=== PATIENT | male | born 1990 ===

== ENCOUNTER 2018-07-26 17:30 | Emergency (ER) | payer SELFPAY ==
[2018-07-26 18:29] LABS: BASO % 0.3 % (0.0-2.0); EOS % 0.1 % (0.0-4.0); HEMOGLOBIN 16.1 g/dL (12.0-18.0); LYMPH # 2.5 K/uL (1.0-4.3); LYMPH % 19.6 % (20.0-40.0); MEAN CELL VOLUME 90.9 fL (80.0-94.0); MEAN CORPUSCULAR HEMOGLOBIN 31.6 pg (27.0-31.0); MEAN CORPUSCULAR HGB CONC 34.8 g/dL (33.0-37.0); MEAN PLATELET VOLUME 9.9 fL (7.2-11.7); MONO # 1.8 K/uL (0.0-0.8); MONO % 13.9 % (0.0-10.0); NEUT # 8.6 K/uL (1.8-7.0); NEUT % 66.1 % (50.0-75.0); RBC 5.09 Mil/uL (4.40-5.90); RED CELL DISTRIBUTION WIDTH 13.1 % (11.5-14.5); WHITE BLOOD COUNT 12.9 K/uL (4.8-10.8)
[2018-07-26] MEDS ORDERED: Sodium Chloride 0.9% 1,000 ML IV ONE ×2 (18:30→20:15)
[2018-07-26 18:33] LABS: SQUAMOUS EPITHIAL 12 /hpf (0-5); URINE BILIRUBIN NEGATIVE (NEGATIVE); URINE BLOOD NEGATIVE (NEGATIVE); URINE CLARITY Hazy (Clear); URINE COLOR Amber (YELLOW); URINE GLUCOSE (UA) NORMAL (Normal); URINE HYALINE CAST >20 /lpf (0-2); URINE LEUKOCYTE ESTERASE NEG Leu/uL (Negative); URINE PROTEIN 1+ mg/dL (NEGATIVE); URINE UROBILINOGEN NORMAL mg/dL (0.2-1.0)
[2018-07-26 18:44] LABS: ALB/GLOB RATIO 1.4 (1.0-2.1); ALBUMIN 4.8 g/dL (3.5-5.0); CALCIUM 8.4 mg/dl (8.6-10.4)
[2018-07-26] MEDS ORDERED: Sodium Chloride 0.9% 1,000 ML ONE (18:58)
--- NOTE | 2018-07-26 20:04 | C.PDOC ---
History Of Present Illness 28 year old male presents to the ED for evaluation of abdominal cramps, nausea and vomiting which began two days ago. Patient states his pain is mostly in his epigastric region. Patient states he has been drinking Gatorade and having some difficulty tolerating PO intake. Patient reports having previous symptoms in the past. He was seen here and given nausea medication which helped. Patient has been told to see GI in the past, but has not done it yet. Patient denies fever, chills. Time Seen by Provider: 07/26/18 17:46 Chief Complaint (Nursing): Abdominal Pain History Per: Patient History/Exam Limitations: no limitations Onset/Duration Of Symptoms: Days Current Symptoms Are (Timing): Still Present Location Of Pain/Discomfort: Epigastric Associated Symptoms: Nausea, Vomiting. denies: Fever, Chills, Diarrhea, Urinary Symptoms Additional History Per: Patient Past Medical History Reviewed: Historical Data, Nursing Documentation, Vital Signs Vital Signs: Last Vital Signs Temp 98.8 F 07/26/18 17:37 Pulse 99 H 07/26/18 17:37 Resp 19 07/26/18 17:37 BP 106/75 07/26/18 17:37 Pulse Ox 95 07/26/18 17:37 Primary Care Provider: FAMILY PROVIDER,NO - Medical History PMH: No Chronic Diseases Surgical History: No Surg Hx Family History: States: Unknown Family Hx - Social History Hx Alcohol Use: Yes Hx Substance Use: No - Immunization History Hx Tetanus Toxoid Vaccination: No Hx Influenza Vaccination: No Hx Pneumococcal Vaccination: No Review Of Systems Constitutional: Negative for: Fever, Chills Gastrointestinal: Positive for: Nausea, Vomiting, Abdominal Pain (epigastric ) Genitourinary: Negative for: Dysuria, Hematuria Physical Exam - Physical Exam Appears: Non-toxic, Other (slightly uncomfortable ) Skin: Normal Color, Warm, Dry Head: Atraumatic, Normacephalic Eye(s): bilateral: Normal Inspection Oral Mucosa: Moist Neck: Supple Chest: Symmetrical, No Deformity, No Tenderness Cardiovascular: Rhythm Regular, No Murmur Respiratory: Normal Breath Sounds, No Rales, No Rhonchi, No Wheezing Gastrointestinal/Abdominal: Soft, Tenderness (epigastric ), No Guarding, No Rebound Back: No CVA Tenderness Extremity: Normal ROM, Capillary Refill (less than 2 seconds ) Neurological/Psych: Oriented x3, Normal Speech, Normal Cognition ED Course And Treatment - Laboratory Results Result Diagrams: 07/26/18 18:27 07/26/18 20:48 Lab Results: Total Bilirubin 1.0 mg/dL (0.2-1.3) 07/26/18 18: AST 29 U/L (17-59) 07/26/18 18: ALT 27 U/L (21-72) 07/26/18 18: Alkaline Phosphatase 72 U/L (38-126) 07/26/18 18: Total Protein 8.2 g/dL (6.3-8.3) 07/26/18 18: Albumin 4.8 g/dL (3.5-5.0) 07/26/18 18: Globulin 3.4 gm/dL (2.2-3.9) 07/26/18 18: Albumin/Globulin Ratio 1.4 (1.0-2.1) 07/26/18 18: Lipase 102 U/L (23-300) 07/26/18 18: Urine Color Ninfa (YELLOW) 07/26/18 18:27 Urine Clarity Hazy (Clear) 07/26/18 18: Urine pH 5.0 (5.0-8.0) 07/26/18 18: Ur Specific Merritt 1.023 (1.003-1.030) 07/26/18 18: Urine Protein 1+ mg/dL (NEGATIVE) H 07/26/18 18:27 Urine Glucose (UA) Normal mg/dL (Normal) 07/26/18 18: Urine Ketones Negative mg/dL (NEGATIVE) 07/26/18 18: Urine Blood Negative (NEGATIVE) 07/26/18 18: Urine Nitrate Negative (NEGATIVE) 07/26/18 18: Urine Bilirubin Negative (NEGATIVE) 07/26/18 18: Urine Urobilinogen Normal mg/dL (0.2-1.0) 07/26/18 18: Ur Leukocyte Esterase Neg Cipriano/uL (Negative) 07/26/18 18:27 Urine WBC (Auto) 5 /hpf (0-5) 07/26/18 18:27 Urine RBC (Auto) 1 /hpf (0-3) 07/26/18 18:27 Ur Squamous Epith Cells 12 /hpf (0-5) H 07/26/18 18:27 Hyaline Casts >20 /lpf (0-2) H 07/26/18 18:27 O2 Sat by Pulse Oximetry: 95 (on RA ) Pulse Ox Interpretation: Normal Progress Note: Bloodwork and urinalysis ordered and reviewed. Pepcid IVP, Zofran IVP and IV Fluids given. Disposition Counseled Patient/Family Regarding: Studies Performed, Diagnosis, Need For Followup - Disposition Referrals: [facility] [Outside] Disposition: HOME/ ROUTINE Disposition Time: 21:15 Condition: STABLE Additional Instructions: FOLLOW UP WITH YOUR DOCTOR/CLINIC IN 1-2 DAYS DRINK PLENTY OF FLUIDS/GATORADE RETURN TO ER IF YOUR SYMPTOMS WORSEN Prescriptions: Ondansetron ODT [Zofran ODT] 1 odt PO BID PRN #15 odt PRN Reason: Nausea/Vomiting Instructions: Nausea and Vomiting, Adult (DC) Forms: [employer] (Honduran) Print Language: EMIRATI - Clinical Impression Clinical Impression: Nausea, Vomiting, Dehydration - Scribe Statement The provider has reviewed the documentation as recorded by the Scribe (Noy Brooks) Provider Attestation: All medical record entries made by the Scribe were at my direction and personally dictated by me. I have reviewed the chart and agree that the record accurately reflects my personal performance of the history, physical exam, medical decision making, and the department course for this patient. I have also personally directed, reviewed, and agree with the discharge instructions and disposition.
[2018-07-26] MEDS ORDERED: Potassium Chloride 20 mEq ER Tab PO STA (20:15)
[2018-07-26 20:22] VITALS: TEMP 98.4
[2018-07-26] MEDS ORDERED: Potassium Chloride 20 mEq ER Tab PO ONE (20:29)
[2018-07-26 21:03] LABS: ALB/GLOB RATIO 1.4 (1.0-2.1); ALBUMIN 3.5 g/dL (3.5-5.0); CALCIUM 7.3 mg/dl (8.6-10.4)
[2018-07-26 21:39] VITALS: BP 125/82; PULSE 88; RESP 18; O2SAT 98
== END 2018-07-26 21:39 | disposition home or self-care (01) ==
LOC: C.ER 17:30
DX: E86.0 Dehydration (principal); R11.2 Nausea with vomiting, unspecified
CPT/HCPCS: 80053; 81001; 83690; 85025; 96361; 96374; 96375; 99285; J2405; J2765; J7030

== ENCOUNTER 2018-07-28 19:10 | Inpatient (IN) | payer MEDICAID ==
--- NOTE | 2018-07-28 19:49 | C.PDOC ---
History Of Present Illness 28 yo male w/Hx of heroin abuse come in request detox. Pt admits, last dose was 24 hrs ago. Pt denies depression, suicidal/homocidal ideation. Pt denies any active physical complaints at present time. Ambulatory, not in any apparent distress. Time Seen by Provider: 07/28/18 19:40 Chief Complaint (Nursing): Substance Abuse History Per: Patient Past Medical History Reviewed: Historical Data, Nursing Documentation, Vital Signs Vital Signs: Last Vital Signs Temp 99.5 F 07/28/18 19:33 Pulse 82 07/28/18 19:33 Resp 22 07/28/18 19:33 BP 115/76 07/28/18 19:33 Pulse Ox 100 07/28/18 19:33 Primary Care Provider: Non [facility] Provider, - Medical History PMH: No Chronic Diseases Family History: States: Unknown Family Hx - Social History Hx Tobacco Use: Yes Hx Alcohol Use: Yes Hx Substance Use: No - Immunization History Hx Tetanus Toxoid Vaccination: No Hx Influenza Vaccination: No Hx Pneumococcal Vaccination: No Review Of Systems Except As Marked, All Systems Reviewed And Found Negative. Constitutional: Negative for: Fever, Chills Eyes: Negative for: Vision Change ENT: Negative for: Ear Discharge, Nose Discharge Cardiovascular: Negative for: Chest Pain, Palpitations, Edema, Light Headedness Respiratory: Negative for: Cough, Shortness of Breath, Wheezing Gastrointestinal: Negative for: Nausea, Vomiting, Abdominal Pain, Diarrhea Genitourinary: Negative for: Dysuria, Incontinence Musculoskeletal: Negative for: Neck Pain, Back Pain Neurological: Negative for: Weakness, Numbness, Altered Mental Status, Headache, Dizziness Psych: Positive for: Withdrawal. Negative for: Suicidal ideation Physical Exam - Physical Exam Appears: Well, Non-toxic, No Acute Distress Skin: Normal Color, Warm, Dry, No Rash Head: Normacephalic Eye(s): bilateral: PERRL Nose: No Discharge Oral Mucosa: Moist, No Drooling, No Trismus Tongue: Normal Appearing Lips: Normal Appearing Throat: No Erythema Neck: Supple Cardiovascular: Rhythm Regular, No Murmur, No JVD Respiratory: No Decreased Breath Sounds, No Accessory Muscle Use, No Stridor, No Wheezing Gastrointestinal/Abdominal: Soft, No Tenderness, No Distention, No Guarding, No Rebound Back: No CVA Tenderness Extremity: Normal ROM, No Tenderness, No Pedal Edema, No Deformity, No Swelling Neurological/Psych: Oriented x3, Normal Speech ED Course And Treatment - Laboratory Results Result Diagrams: 07/28/18 20:03 07/28/18 20:03 Lab Interpretation: No Acute Changes O2 Sat by Pulse Oximetry: 100 Pulse Ox Interpretation: Normal Progress Note: At 20:30, pt resting comforably, not in any apaprent distress. AOO#3, not in any apparent distress. Blood work review and appears normal. Pt is medically cleared for PES evaluation. At 21:30, pt was evaluated by Crisis, case discusse adolfo Moy and admission arranged to detox hussain w/ds: Opioid use disorder, severe. Pt agrees with plan. Disposition - Disposition Disposition: HOSPITALIZED Disposition Time: 21:46 Condition: STABLE Forms: [employer] (Turkmen) - Clinical Impression Clinical Impression: Opioid use disorder, severe, dependence
[2018-07-28 20:07] LABS: BASO % 0.6 % (0.0-2.0); EOS # 0.1 K/uL (0.0-0.7); EOS % 0.7 % (0.0-4.0); HEMOGLOBIN 13.2 g/dL (12.0-18.0); LYMPH # 2.2 K/uL (1.0-4.3); MEAN CELL VOLUME 92.8 fL (80.0-94.0); MEAN CORPUSCULAR HGB CONC 34.4 g/dL (33.0-37.0); MEAN PLATELET VOLUME 10.2 fL (7.2-11.7); MONO % 14.5 % (0.0-10.0); NEUT # 3.6 K/uL (1.8-7.0); NEUT % 52.2 % (50.0-75.0); RBC 4.13 Mil/uL (4.40-5.90); RED CELL DISTRIBUTION WIDTH 12.9 % (11.5-14.5)
[2018-07-28 20:17] LABS: URINE BACTERIA RARE (<OCC); URINE BILIRUBIN NEGATIVE (NEGATIVE); URINE BLOOD NEGATIVE (NEGATIVE); URINE CLARITY Clear (Clear); URINE COLOR Straw (YELLOW); URINE GLUCOSE (UA) NORMAL (Normal); URINE LEUKOCYTE ESTERASE NEG Leu/uL (Negative); URINE PROTEIN NEGATIVE (NEGATIVE); URINE UROBILINOGEN NORMAL mg/dL (0.2-1.0)
[2018-07-28 20:30] LABS: BARBITURATES, UR NEGATIVE (NEGATIVE); BENZODIAZEPINES, UR NEGATIVE (NEGATIVE); PHENCYCLIDINE, UR NEGATIVE (NEGATIVE)
[2018-07-28 20:36] LABS: ALB/GLOB RATIO 1.4 (1.0-2.1); ALBUMIN 3.6 g/dL (3.5-5.0); ALT/SGPT 24 U/L (21-72); AST/SGOT 20 U/L (17-59); BLOOD UREA NITROGEN 26 mg/dL (9-20); CALCIUM 8.5 mg/dl (8.6-10.4); GFR NON-AFRICAN AMERICAN 55; OPIATES, UR POSITIVE (NEGATIVE)
--- NOTE | 2018-07-28 22:12 | PCM.BM ---
<Karuna Choi - Last Filed: 07/28/18 22:11> Treatment Plan Problems - Problems identified on initial assessmt Denial Date Initiated: 07/28/18 Time Initiated: 22:11 Assessment reference: NA Status: Active Defensive Coping Date Initiated: 07/28/18 Time Initiated: 22:11 Assessment reference: NA Status: Active Low Motivation to Change Date Initiated: 07/28/18 Time Initiated: 22:12 Assessment reference: NA Status: Active - Milieu Protocol Maintain good personal hygiene: daily Encourage regular showers, daily Remind patient to perform daily oral care, daily Assist patient to perform ADL's Conduct patient checks and document Observation sheet: Q15 minutes Maintain personal safety: every shift Educate patient to report safety concerns to staff, every shift Monitor environment for contraband/sharps Medication safety: Monitor for expected outcome, potential side effects: every shift, Assess barriers to learning: every shift, Assess readiness for medication education: every shift <Ashleigh Lucas - Last Filed: 07/30/18 12:00> - Diagnosis (1) Opioid use disorder, severe, dependence Status: Acute Interventions: 07/30/18 12:00 * Assess 7x/week regarding severity of withdrawal * Educate regarding risks, benefits, side effects and alternatives of medications * Use Motivational Interviewing for abstinence * Use CBT for relapse prevention * Medication management for withdrawal symptoms * Encourage medication assisted treatment * <Taya Bean - Last Filed: 07/30/18 13:07> Family Contact Family involvement: Famliy/SO not involved - Goals for Treatment Patient goals for treatment: Complete detox and transition to an IOP. Discharge/Continuing Care - Education Needs Education Needs: Patient Medication, Patient Diagnosis/Disease Process, Patient Coping Skills, Patient Anger Management skills, Patient Placement options, Patient Community resources - Discharge Discharge Criteria: No longer exhibiting s/s of withdrawal, Reduction of target symptoms Discharge to:: Home - Treatment Team Participation Patient/Family/SO Statement: 07/30/18 13:07 "I wanna go to an IOP" Discussed with Family/SO: No Was Patient/Family/SO present at Treatment Team Meeting: Yes
[2018-07-28] MEDS ORDERED: Aluminum Hydroxide/Magnesium Hydroxide Susp (30 mL) PO PRN (22:47)
--- NOTE | 2018-07-29 13:56 | PCM.PSYCH ---
Initial Psychiatric Evaluation - Initial Psychiatric Evaluation Type of Admission: Voluntary Legal Status: Capacity Chief Complaint (in patient's own words): "I need detox" History of Present Illness and Precipitating Events: Pt is a 28 y/o male single with 2 children, lives with his GF, GFs mother, and 2 children, and currently working as a hobson. He started using oxycodone 30mg pills 2 years ago. When he couldnt get any more pills he stopped abruptly and started withdrawing. He switched to heroin 1 year ago as a substitute. He sniffs about 20 bags per day and occasionally uses pain killers as well. He does not use it to get high anymore, I just use it to feel normal and I dont want to anymore. He also uses Xanax about 3x/month, smokes occasionally, stopped using marijuana 1 month ago, and drinks alcohol socially. He has an overdose recently (months). He has never been to detox, rehab, or methadone/suboxone clinics. He feels down but not very depressed or suicidal. No trauma hx. He had chills, NV, pains, iritability and anxiety COWS>10 and so tx started Past psych hx: Denies Fam psych hx: Had two brothers on his fathers side who used unspecified drugs, one from overdose. Med hx: denies Current Medications: Active Medications Generic Name Dose Route Start Last Admin Trade Name Freq PRN Reason Stop Dose Admin Al Hydrox/Mg Hydrox/Simethicone 30 ml 07/28/18 22:47 Maalox 30 Ml PO TID PRN Indigestion / Heartburn Clonidine HCl 0.1 mg 07/28/18 22:47 Catapres PO Q4 PRN COWS Score More or Equal to 5 Hydroxyzine HCl 50 mg 07/28/18 22:45 Atarax PO Q6H PRN Anxiety Ibuprofen 600 mg 07/28/18 22:47 Motrin Tab PO Q6 PRN Pain, moderate (4-7) Loperamide HCl 2 mg 07/28/18 22:47 Imodium PO Q8 PRN Diarrhea Methadone HCl 20 mg 07/29/18 10:00 07/29/18 10:07 Methadone PO 08/02/18 09:59 20 mg Q24H GAGE Administration Taper Ondansetron HCl 4 mg 07/28/18 22:47 Zofran Tab PO Q8 PRN Nausea/Vomiting Pneumococcal Polyvalent Vaccine 0.5 ml 08/01/18 10:00 Pneumovax 23 Vaccine IM 08/01/18 10:01 .ONCE ONE Trazodone HCl 100 mg 07/28/18 22:48 Desyrel PO HS PRN Insomnia Past Psychiatric History - Past Psychiatric History Pertinent Medical Hx (Current Medical&Sleep Prob, Allergies): Allergies Allergy/AdvReac Type Severity Reaction Status Date / Time No Known Allergies Allergy Verified 07/28/18 19:37 Ondansetron ODT [Zofran ODT] 1 odt PO BID PRN #15 odt 07/26/18 Review of Systems - Psychiatric Psychiatric: Abnormal Sleep Pattern, Anhedonia, Anxiety, Difficulty Concentrating. absent: Hallucinations, Homicidal Ideation, Paranoia, Suicidal Ideation Mental Status Examination - Personal Presentation Personal Presentation: Looks stated age - Affect Affect: Constricted - Motor Activity Motor Activity: Calm - Reliability in Providing Information Reliability in Providing Information: Good - Speech Speech: Organized - Mood Mood: Depressed, Anxious - Formal Thought Process Formal Thought Process: No Impairment - Cognitive Functions Orientation: Person, Place, Situation, Time Sensorium: Alert Estimate of Intelligence: Average Judgement: Intact, as evidence by: Insight regarding need for hospitalization Memory: Recent intact, as evidence by: Ability to recall events of the day, Remote intact, as evidenced by: Abilit to recall sig. life events - Risk Risk: Withdrawal, Diminished functioning - Strength & Assets Inventory Strength & Assets Inventory: Cooperative - Limitations Limitations: Other DSM 5 DX - DSM 5 DSM 5 Diagnosis: Opioid withdrawal Opioid use d/o - severe - Recommended/Plan of Treatment Treatment Recommendations and Plan of Treatment: Taper with methadone Gabapentin for augmentation if needed As needed medications All risks, benefits and alternatives of the meds discussed, and the pt agreed and understood. Attend groups and activities Supportive therapy and psychoeducation [place] for abstinence CBT for relapse prevention Encourage MAT Refer to rehab or IOP, and self-help groups Teach healthy lifestyle methods, i.e. diet, exercise, meditation Smoking cessation with GA Nicotine patch if needed 34 min Projected ELOS: 4 days Prognosis: good - Smoking Cessation Smoking Cessation Initiated: Yes
--- NOTE | 2018-07-30 11:54 | PCM.PYCHPN ---
Psychiatric Progress Note - Psychiatric Progress Note Patient seen today, length of contact: 17 min Patient Chief Complaint: "I couldn't sleep well" Problems Identified/Issues Discussed: The pt is seen, chart reviewed, case is discussed with staff. The pt is compliant with medications and reports no side-effects. Symptoms are improving but needs more time to stabilize and to avoid relapse. Pt attends groups and activities. Support given, psycho-education provided. After care discussed. Medication Change: Yes (detox changes daily) Medical Record Reviewed: Yes Mental Status Examination - Cognitive Function Orientation: Person, Place, Situation, Time Memory: Intact Attention: WNL Concentration: WNL Association: WN Fund of Knowledge: WN - Mood Mood: Depressed, Anxious - Affect Affect: Constricted - Speech Speech: Appropriate - Formal Thought Process Formal Thought Process: No Impairment - Suicidal Ideation Suicidal Ideation: No - Homicidal Ideation Homicidal Ideation: No Goal/Treatment Plan - Goal/Treatment Plan Need for Continued Stay: Discharge may exacerbated symptoms, Severe functional impairment Progress Toward Problem(s) and Goals/Treatment Plan: Taper with methadone Gabapentin for augmentation if needed As needed medications All risks, benefits and alternatives of the meds discussed, and the pt agreed and understood. Attend groups and activities Supportive therapy and psychoeducation [place] for abstinence CBT for relapse prevention Encourage MAT Refer to rehab or IOP, and self-help groups Teach healthy lifestyle methods, i.e. diet, exercise, meditation Smoking cessation with [place] Nicotine patch if needed
--- NOTE | 2018-07-31 14:16 | PCM.PYCHPN ---
Psychiatric Progress Note - Psychiatric Progress Note Patient seen today, length of contact: 15 min Patient Chief Complaint: "I couldn't sleep well" Problems Identified/Issues Discussed: The pt is seen, chart reviewed, case is discussed with staff. The pt is compliant with medications and reports no side-effects. Symptoms are improving but needs more time to stabilize and to avoid relapse. Pt attends groups and activities. Support given, psycho-education provided. After care discussed. Medication Change: Yes (detox changes daily) Medical Record Reviewed: Yes Mental Status Examination - Cognitive Function Orientation: Person, Place, Situation, Time Memory: Intact Attention: WNL Concentration: WNL Association: WN Fund of Knowledge: WN - Mood Mood: Depressed, Anxious - Affect Affect: Constricted - Speech Speech: Appropriate - Formal Thought Process Formal Thought Process: No Impairment - Suicidal Ideation Suicidal Ideation: No - Homicidal Ideation Homicidal Ideation: No Goal/Treatment Plan - Goal/Treatment Plan Need for Continued Stay: Discharge may exacerbated symptoms, Severe functional impairment Progress Toward Problem(s) and Goals/Treatment Plan: Taper with methadone Gabapentin for augmentation if needed As needed medications All risks, benefits and alternatives of the meds discussed, and the pt agreed and understood. Attend groups and activities Supportive therapy and psychoeducation [place] for abstinence CBT for relapse prevention Encourage MAT Refer to rehab or IOP, and self-help groups Teach healthy lifestyle methods, i.e. diet, exercise, meditation Smoking cessation with [place] Nicotine patch if needed
[2018-08-01 07:43] VITALS: BP 120/85; PULSE 82; RESP 19; TEMP 98.5; O2SAT 100
--- NOTE | 2018-08-01 08:41 | PCM.PYCHDC ---
Mental Status Examination - Mental Status Examination Orientation: Person Discharge Summary - Discharge Note Consultations:: List each consultation separately and include: 1. Reason for request. 2. Findings. 3. Follow-up Summary of Hospital Course include:: 1. Description of specific treatment plan utilized for patients during their course of treatmen. 2. Summarize the time- course for resolution of acute symptoms and/or regressed behaviors. 3. Describe issues identified and worked on during hospitalization. 4. Describe medication utilized. 5. Describe medical problems identified and treated. 6. 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 When he couldnt get any more pills he stopped abruptly and started withdrawing. He switched to heroin 1 year ago as a substitute. He sniffs about 20 bags per day and occasionally uses pain killers as well. He does not use it to get high anymore, I just use it to feel normal and I dont want to anymore. He also uses Xanax about 3x/month, smokes occasionally, stopped using marijuana 1 month ago, and drinks alcohol socially. He has an overdose recently (months). He has never been to detox, rehab, or methadone/suboxone clinics. He feels down but not very depressed or suicidal. No trauma hx. He had chills, NV, pains, iritability and anxiety COWS>10 and so tx started Past psych hx: Denies Fam psych hx: Had two brothers on his fathers side who used unspecified drugs, one from overdose. Med hx: denies He went to [facility] IOP - Diagnosis (1) Opioid use disorder, severe, dependence Status: Acute - Final Diagnosis (DSM 5) Condition upon Discharge: STABLE Disposition: HOME/ ROUTINE Follow-up Treatment Plan: Taper with methadone Gabapentin for augmentation if needed As needed medications All risks, benefits and alternatives of the meds discussed, and the pt agreed and understood. Attend groups and activities Supportive therapy and psychoeducation [place] for abstinence CBT for relapse prevention Encourage MAT Refer to rehab or IOP, and self-help groups Teach healthy lifestyle methods, i.e. diet, exercise, meditation Smoking cessation with [place] Nicotine patch if needed
[2018-08-01] MEDS ORDERED: Pneumococcal 23-Valent Vaccine IM ONE (10:00)
== END 2018-08-01 08:10 | disposition home or self-care (01) | DRG 772 ==
LOC: C.ER 19:10 → C.7D 21:45
PROVIDERS: ADMIT Psychiatry & Neurology Psychiatry; ATTEND Psychiatry & Neurology Psychiatry
PROC: HZ2ZZZZ Detoxification Services for Substance Abuse Treatment (ICD-10-PCS; principal; 2018-07-28)
PROC: HZ42ZZZ Group Counseling for Substance Abuse Treatment, Cognitive-Behavioral (ICD-10-PCS; 2018-07-28)
PROC: HZ52ZZZ Individual Psychotherapy for Substance Abuse Treatment, Cognitive-Behavioral (ICD-10-PCS; 2018-07-28)
PROC: HZ59ZZZ Individual Psychotherapy for Substance Abuse Treatment, Supportive (ICD-10-PCS; 2018-07-28)
PROC: HZ56ZZZ Individual Psychotherapy for Substance Abuse Treatment, Psychoeducation (ICD-10-PCS; 2018-07-28)
PROC: HZ46ZZZ Group Counseling for Substance Abuse Treatment, Psychoeducation (ICD-10-PCS; 2018-07-28)
PROC: GZHZZZZ Group Psychotherapy (ICD-10-PCS; 2018-07-28)
PROC: GZ58ZZZ Individual Psychotherapy, Cognitive-Behavioral (ICD-10-PCS; 2018-07-28)
PROC: GZ56ZZZ Individual Psychotherapy, Supportive (ICD-10-PCS; 2018-07-28)
DX: F11.23 Opioid dependence with withdrawal (principal); F41.9 Anxiety disorder, unspecified; F17.210 Nicotine dependence, cigarettes, uncomplicated; G47.00 Insomnia, unspecified